=== PATIENT | female | born 1935 | race Caucasian/White ===

== ENCOUNTER 2023-01-19 18:27 | Emergency (ER) | payer MEDICAID, MEDICARE ==
[~2023-01-19] VITALS: Ht 162.6 cm; Wt 72.6 kg
[2023-01-19] MEDS ORDERED: CLONIDINE HCL 0.1 MG TABLET PO ONE (19:00)
[2023-01-19 19:12] LABS: *BILIRUBIN,URIN NEGATIVE (NEGATIVE); *BLOOD, URINE NEGATIVE (NEGATIVE); *CLARITY,URINE CLEAR (CLEAR); *COLOR,URINE YELLOW (YELLOW); *KETONES,URINE NEGATIVE (NEGATIVE); *PROTEIN,URINE NEGATIVE (NEGATIVE); *UROBILINOGEN,URINE 0.2 E.U./dl (NORMAL); LEUKOCYTE ESTERASE ,URINE NEGATIVE (NEGATIVE); NITRITE, URINE NEGATIVE (NEGATIVE); UGLUCOSE NEGATIVE (NEGATIVE)
[2023-01-19] MEDS ORDERED: CLONIDINE HCL 0.1 MG TABLET ONE (19:18)
[2023-01-19] MEDS ORDERED: CLON0.1T PO (19:22)
[2023-01-19] MEDS ORDERED: OLME5TAB3 PO (19:45)
[2023-01-19] MEDS ORDERED: ASPI81TA31 PO (19:45)
[2023-01-19] MEDS ORDERED: PREG50CA PO (19:45)
[2023-01-19] MEDS ORDERED: ROSU40TA PO (19:45)
[2023-01-19] MEDS ORDERED: EZET10TA15 PO (19:45)
[2023-01-19] MEDS ORDERED: ENALAPRILAT DIHYDRATE 1.25 MG/1 ML VIAL IV ONE ×2 (19:52→20:00)
[2023-01-19 21:02] VITALS: BP 142/71; TEMP 98.4; O2SAT 98
== END 2023-01-19 20:30 | disposition home or self-care (01) ==
LOC: EDBD 18:27 → ER 18:27
DX: I10 Essential (primary) hypertension (principal); Z79.82 Long term (current) use of aspirin; Z79.899 Other long term (current) drug therapy
CPT/HCPCS: 99284; 96374; 81003; 93005; J3490; A4663